=== PATIENT | male | born 1975 | race Caucasian/White ===

== ENCOUNTER 2024-11-25 07:50 | Emergency (ER) | payer OTHER ==
[~2024-11-25] VITALS: Ht 188 cm; Wt 100.5 kg
--- NOTE | 2024-11-25 08:06 | Physician Documentation ---
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 Pain worsened when he stood up and more weight on the left leg. He states pain is very similar to prior DVTs. He denies any shortness of breath or chest pain. Medication Reconciliation Allergies: Coded Allergies: No Known Allergies (Unverified , 11/25/24) Past Medical History Past Medical History: Deep Vein Thrombosis Past Surgical History: noncontributory Drug Use: none Lives In: Home Review of Systems All Other Systems at this time: Reviewed and Negative ROS As stated above in the HPI, otherwise all systems are reviewed and negative. Physical Exam Physical Exam Vital Signs: RN Vital Signs have been reviewed: Yes, Heart Rate: 92, Respiratory Rate: 18, BP: 143/99, Pulse Oximetry: 98, Weight: 100.500 Oxygen Flow Rate: 0 Pulse Oximetry Reflects: adequate oxygenation Physical Exam VITALS: Reviewed and as above. GENERAL: Alert, no apparent distress. HEENT: Normocephalic, atraumatic, PERRL, EOMI, dry mucosa RESPIRATORY: Lungs clear, normal breath sounds, no respiratory distress. CHEST: No accessory muscle use, no retractions CV: Regular rate, rhythm, no edema, no murmur, No: JVD MUSCULOSKELETAL: LLE normal in appearance, no tenderness. No deformities, no edema. SKIN: Warm and dry, no rash NEURO: Oriented x4, No motor or sensory deficit PSYCH: Normal mood and affect, no agitation Progress Results/Orders Reviewed/noted all lab results: Yes Results/Orders Orders - OHVALERIE HESS MD Venous (11/25/24 08:17) Completed Orders - VALERIE BACON MD Venous (11/25/24 08:17) Vital Signs 11/25/24 11/25/24 11/25/24 07:55 08:02 09:18 Temp 97.3 Pulse 92 78 Resp 18 18 16 B/P (MAP) 143/99 136/77 Pulse Ox 98 99 O2 Flow Rate 0 EKG/XRAY/CT/US/VASC/MRI Vascular : Interpreted By: radiologist Vascular Study: lower extremity venous (left) Impression Left lower extremity venous duplex Clinical History: Pain. Comparison: None Findings: Duplex Doppler evaluation of the deep venous systems of both lower extremities from the common femoral veins to the popliteal veins including color Doppler and spectral/pulsed waveform analysis was performed. RIGHT SIDE: The common femoral vein demonstrates appropriate compressibility and waveform variability. LEFT SIDE: The common femoral vein demonstrates appropriate compressibility and waveform variability. There is compressibility/patency of the great saphenous vein at the proximal thigh. The femoral vein demonstrates appropriate compressibility and waveform variability. The deep femoral vein demonstrates appropriate compressibility and waveform variability. The popliteal vein demonstrates appropriate compressibility and waveform variability. There is normal compressibility at the tibioperoneal trunk. Impression: 1. No left femoropopliteal venous thrombosis. Reviewed by Dr. Bacon. Medical Decision Making Additional information obtaine: old records (No prior visits) Findings [age] year old male with a history of DVTs complains of calf pain on exam he has got no swelling no significant tenderness. Previous hospitalizations were reviewed. The patient's pulse oximetry was interpreted as normal and adequate a duplex ultrasound of his lower extremity failed to demonstrate any blood clot the patient will be discharged with instructions to follow up as an outpatient he has been advised to return for worsening of his symptoms. Differential Diagnosis DVT muscle spasms myalgias Departure Disposition: 01 HOME / SELF CARE / HOMELESS Impression: Primary Impression: Leg cramps Condition: Stable Discharge Instructions: Leg Cramps Signature Scribe Signature: Scribed for Valerie Bacon MD by Vel Martinez . 11/25/24 08:18 Attestation: The note accurately reflects work and decisions made by me.Valerie Bacon MD 11/26/24 17:28 VALERIE BACON MD Nov 25, 2024 08:06 VEL RUDOLPH Nov 25, 2024 08:21
[2024-11-25 09:18] VITALS: BP 136/77; PULSE 78; RESP 16; TEMP 97.3; O2SAT 99
--- NOTE | 2024-11-25 09:36 | VASCULAR REPORT ---
Left lower extremity venous duplex Clinical History: Pain. Comparison: None Findings: Duplex Doppler evaluation of the deep venous systems of both lower extremities from the common femoral veins to the popliteal veins including color Doppler and spectral/pulsed waveform analysis was performed. RIGHT SIDE: The common femoral vein demonstrates appropriate compressibility and waveform variability. LEFT SIDE: The common femoral vein demonstrates appropriate compressibility and waveform variability. There is compressibility/patency of the great saphenous vein at the proximal thigh. The femoral vein demonstrates appropriate compressibility and waveform variability. The deep femoral vein demonstrates appropriate compressibility and waveform variability. The popliteal vein demonstrates appropriate compressibility and waveform variability. There is normal compressibility at the tibioperoneal trunk. Impression: 1. No left femoropopliteal venous thrombosis.
== END 2024-11-25 09:26 | disposition home or self-care (01) ==
LOC: ER 07:51
DX: M79.662 Pain in left lower leg (principal); Z86.718 Personal history of other venous thrombosis and embolism
CPT/HCPCS: 93971; 99284